=== PATIENT | male | born 2000 | race Caucasian/White ===

== ENCOUNTER 2022-09-16 10:29 | Emergency (ER) | payer BC, SELFPAY ==
[2022-09-16 10:40] VITALS: BP 131/81; PULSE 100; RESP 16; TEMP 36.1; O2SAT 99; BMI 21.9
--- NOTE | 2022-09-16 11:12 | CRLHL7_ITS ---
For Patients: As a result of the Cures Act, medical imaging exams and procedure reports are released immediately into your electronic medical record. You may view this report before your referring provider. If you have questions, please contact your health care provider. Indication: Trauma Technique: Right elbow 3 views Comparison: None Findings/impression: Acute complete fracture of the olecranon with extension into the joint space with anterior displacement of the distal fracture fragment measuring 6 millimeters. Associated soft tissue swelling. Bony mineralization is age appropriate. Dictated by Joo Whitt MD @ 09/16/2022 12:14:13 PM (Electronically Signed)
--- NOTE | 2022-09-16 11:14 | ED_ITS ---
HPI - Extremity Injury (Upper) General Chief Complaint: Extremity Pain/Injury, Upper Stated Complaint: Possible RT elbow broken Time Seen by Provider: 09/16/22 10:41 Source: patient and family History of Present Illness HPI narrative: A 2-year-old male was out running this morning, slipped on the ice falling onto right hip and right elbow noted immediate pain in right elbow. No prior history of elbow fracture or dislocation. Notes significant swelling. Pain radiates down the arm can move the hand and wrist without difficulty. Did not hit his head. Does not take anticoagulants. Has had a few sips of water this morning only. Last meal was 7:00 p.m. last night. Has had general anesthesia with wisdom tooth extraction in the past, no complications. No family history of anesthesia complications. No intoxication or alcohol involvement today. Did tr y taking 2 Tylenol with inadequate pain relief. Past medical history benign, no major long-term health problems, no prescription medications. Surgical history notable for wisdom tooth extraction. Family history negative for anesthesia complications. ROS notable for no other musculoskeletal injuries, no other complaints times 12 systems. MD complaint: injury to: right Related Data Home Medications Medication Instructions Recorded Confirmed No Known Home Medications 09/16/22 09/16/22 Allergies Allergy/AdvReac Type Severity Reaction Status Date / Time No Known Drug Allergies Allergy Verified 09/16/22 10:42 [facility] Social History Smoking Status: Never smoker Do you use any of these nicotine containing products: E-Cigarettes Second hand tobacco smoke exposure: No How often do you have a drink containing alcohol: never How often do you have six or more drinks on one occasion: Never AUDIT-C Alcohol total score: 0 Non-prescribed substance use: denies use service: No Exam Const: Vital Signs, click to edit/add: Vital Signs - 24 hr 09/16/22 10:40 Temperature 97.0 F L Pulse Rate [Left P ulse Oximeter] 100 Respiratory Rate 16 Blood Pressure [Le ft Upper Arm] 131/81 Pulse Oximetry 99 Documenting provider has reviewed patient's vital signs: yes Common normals: no apparent distress General appearance: cooperative and well kempt Other: Mildly anxious with significant guarding of right elbow. Good Historian with no intoxication HENMT: Common normals: normocephalic and head/scalp atraumatic Head and scalp: normocephalic and atraumatic Face and sinus: normal facial exam Eye: Common normals: conjunctivae normal General eye: normal appearance of both eyes Conjunctiva: conjunctiva(e) normal Neck & C-Spine: Common normals: full ROM and no lymphadenopathy Cervical spine: cervical ROM normal Resp: Common normals: normal respiratory effort and clear to auscultation bilaterally Effort & inspection: able to speak in complete sentences Auscultation: clear to auscultation bilaterally Cardio: Common normals: S1 normal heart sound, S2 normal heart sound and no murmurs Heart sounds: S1 normal and S2 normal Extremity: Other: Fingers on the affected side are cooler than the opposite hand but he can move them freely. Capillary refill is right around 2 seconds in the right hand where it is brisk in the opposite left. The wrist has normal flexion and extension the fingers do move normally. There is marked swelling and suspect deformity at the right olecranon, palpation shows significant bogginess. Palpation of the distal humerus also with significant tenderness. I do not perform a full exam due to suspicion for significant injury. I can feel good radial pulse. Opposite left side is unaffected. Palpation of the pelvis reveals no pain. Ambulates without difficulty. Psych: Common normals: thought process normal Appearance: well kempt Thought process: normal thought process Insight: insight good Judgement: judgment good Skin: Common normals: no rashes or lesions noted General skin exam: no rashes or lesions noted Course Vital Signs Vital signs: Initial Vital Signs Temperature 97.0 F L 09/16/22 10:40 Temperature Source Temporal Artery Scan 09/16/22 10:40 Pulse Rate 100 09/16/22 10:40 Respiratory Rate 16 09/16/22 10:40 Blood Pressure 131/81 09/16/22 10:40 Blood Pressure Mean 97 09/16/22 10:40 Blood Pressure Position Sitting 09/16/22 10:40 Pulse Oximetry 99 09/16/22 10:40 Vital Signs Temperature 97.0 F L 09/16/22 10:40 Pulse Rate 100 09/16/22 10:40 Respiratory Rate 16 09/16/22 10:40 Blood Pressure 131/81 09/16/22 10:40 Pulse Oximetry 99 09/16/22 10:40 Temperature 97.0 F L 09/16/22 10:40 Pulse Rate 100 09/16/22 10:40 Respiratory Rate 16 09/16/22 10:40 Blood Pressure 131/81 09/16/22 10:40 Pulse Oximetry 99 09/16/22 10:40 MDM - Extremity Injury (Upper) MDM Narrative Medical decision making narrative: Suspect serious fracture versus dislocation. Concern for neurovascular injury as well. A stat x-ray. Patient was agreeable to a trial of oral pain medication. Oxycodone p.o. x5, await x-ray findings. Will likely need ortho consult. Update: Per my interpretation clear obvious fracture of olecranon, confirmed with radiology report. I am questioning a tiny chip at the radial head as well as was the orthopedic team. We discussed findings over the phone. They are recommending a long-arm posterior splint, pain control and follow-up in clinic. Repeat examination shows warm fingers, normal movement of flexion extension abduction and adduction in the fingers. Normal range of motion at the wrist. Normal sensation. Multiple questions from patient and family answered. Long-a rm splint is applied with good anatomic positioning, 60? recommended. Discussed that he will likely need surgical pinning for optimal tricep performance down the road, he will be contacted from the surgical team regarding this with outpatient follow-up scheduled for Saturday which is 3 days from now. Discussed Tylenol, ibuprofen for pain control primarily, placed in a sling which was of limited benefit, discussed use of this only as needed. Limited prescription of oxycodone given if pain is severe. Risks and benefits discussed. Imaging Data elbow: Attestation: I have reviewed the pertinent imaging results. Radiologist's impression: Findings/impression: Acute complete fracture of the olecranon with extension into the joint space with anterior displacement of the distal fracture fragment measuring 6 millimeters. Associated soft tissue swelling. Bony mineralization is age appropriate. Discharge Plan Discharge Clinical Impression: Fracture of olecranon process of ulna Patient Disposition: Home w/ Parent or Adult Condition: Stable Instructions: Elbow Fracture (ED) Additional Instructions: Thankfully, the fracture of the elbow is fairly mild but it does impact with the tricep muscle inserts onto the elbow. This should be surgically corrected with pins to prevent complications with triceps function down the road. We have you scheduled with Dr. Hallman, 1 of our orthopedic assistant on Saturday. As we discussed, you are welcome to seek input from outside orthopedic care as well. Dr. Farr will discuss surgery, I am hoping this is next week. Pain control will be a bit of an issue. I recommend that you take Tylenol 1000 mg every 6 hours for pain and then ibuprofen 600 mg every 6 hours as well. I have given you a limited supply of oxycodone, you may take 1-2 tablets every 6 hours as needed for severe pain. Please try to wean off of this as soon as you are able. We have given you a sling to use for comfort, if you do not find this helpful, you do not need to use it. I get the current splint wet, new instructions will be given after surgery regarding a more long-term cast. Activity Level: Activity as Tolerated Discharge Diet: Regular Prescriptions: No Action No Known Home Medications Follow Up/Referrals: Provider,Not a Local [Primary Care Provider] - Stand Alone Forms: [employer] Info Instructions
[2022-09-16] MEDS: OXYCODONE 5 MG TABLET PO (11:21)
== END 2022-09-16 12:58 | disposition home or self-care (01) ==
PROVIDERS: Emergency Provider Family Medicine
DX: S52.024A Nondisplaced fracture of olecranon process without intraarticular extension of right ulna, initial encounter for closed fracture (principal); W00.9XXA Unspecified fall due to ice and snow, initial encounter
CPT/HCPCS: 29105; 73080; 99283; A9270

== ENCOUNTER 2022-09-21 09:28 | Day surgery (SDC) | payer BC, SELFPAY ==
[2022-09-21] VITALS (14 sets, daily range): BP systolic 108–140; BP diastolic 66–87; PULSE 73–120; RESP 11–29; TEMP 36.3–36.7; O2SAT 95–100; BMI 21.9
[2022-09-21] MEDS: SODIUM CHLORIDE 0.9 % (FLUSH) 10 ML SYRINGE IVF (10:10)
[2022-09-21] MEDS: LACTATED RINGERS 1000 ML 1,000 ML 100 ML IV (10:10)
--- NOTE | 2022-09-21 11:30 | CRLHL7_ITS ---
For Patients: As a result of the Cures Act, medical imaging exams and procedure reports are released immediately into your electronic medical record. You may view this report before your referring provider. If you have questions, please contact your health care provider. INDICATION: Fracture of the right olecranon. TECHNIQUE: Fluoroscopically guided intraoperative evaluation of the right elbow. FINDINGS: Four portable spot intraoperative images of the right elbow. Metallic plate and screw fixation device bridges the proximal olecranon fracture. More normal anatomic aligned has been achieved since the initial images from September 16, 2022. Fluoroscopic guidance utilized. 7.3 seconds fluoroscopy time utilized. IMPRESSION: 7.3 seconds fluoroscopy time utilized for open reduction and internal fixation of a right olecranon fracture. Adequate alignment. No hardware failure. Dictated by Maik Chery MD @ 09/23/2022 10:35:52 PM (Electronically Signed)
--- NOTE | 2022-09-21 11:46 | SUR.PREOP ---
covid test negative
--- NOTE | 2022-09-21 12:03 | SUR.PREOP ---
TIME?OUT:?1205 PT/RN/MDA?VERIFICATION?OF?SURGICAL?SITE,?PROCEDURE,?AND?CONSENT OBTAINED?PRIOR?TO?INVASIVE?PROCEDURE.
[2022-09-21] MEDS: fentaNYL 100 MCG/2 ML inj IVP (12:06)
[2022-09-21] MEDS: MIDAZOLAM HCL 1 MG/ML inj IVP (12:06)
[2022-09-21] MEDS: CEFAZOLIN 2 GM INJ IVP (12:30)
--- NOTE | 2022-09-21 12:59 | W.ANESCHARGE ---
Anesthesia Charges Start Date/Time Anesthesia Start Date: 09/21/22 Anesthesia Start Time: 12:16 Stop Date/Time Anesthesia Stop Date: 09/21/22 Anesthesia Stop Time: 14:29 Summary Emergency: No
--- NOTE | 2022-09-21 13:32 | W.ANESCHARGE ---
Anesthesia Charges Start Date/Time Anesthesia Start Date: 09/21/22 Anesthesia Start Time: 12:16 Stop Date/Time Anesthesia Stop Date: 09/21/22 Anesthesia Stop Time: 14:29 Summary Emergency: No
--- NOTE | 2022-09-21 13:53 | PM.ORPRC ---
Procedure Note Date of procedure: 09/21/22 Procedure: SURGEON: Vlad Hallman MD ROCKET ENGINE MECHANIC: Aamir REYNOLDS PREOPERATIVE DIAGNOSIS: Right upper extremity displaced 2 part olecranon fracture POSTOPERATIVE DIAGNOSIS: Right upper extremity displaced 2 part olecranon fracture NAME OF OPERATION: ORIF ANESTHESIA: General plus block ESTIMATED BLOOD LOSS: 0 mL COMPLICATIONS: None SPECIMENS: None DRAINS: None PREOPERATIVE ANTIBIOTICS: Ancef 1 g INDICATIONS: The patient is a 22-year-old who sustained a right upper extremity olecranon fracture. ORIF was recommended. The risks, benefits and expected outcomes were discussed in detail. These included but were not limited to: Infection, bleeding, injury to blood vessel or nerve, venous thromboembolism. All questions were answered to their satisfaction. PROCEDURE: The patient was placed supine on the operating room table. General anesthesia was administered. The patient is placed in the left lateral decubitus position, right arm up, secured to the table with the beanbag. All bony prominences were well padded. The right upper extremity was prepped and draped in the usual sterile fashion. The limb was exsanguinated with the Thong bandage. The pneumatic tourniquet was inflated to 250 mmHg. A longitudinal incision was made over the olecranon, it was curved radially over the point of the olecranon. Subcutaneous dissection taken sharply to the fracture which was subperiosteal exposed. Fracture hematoma was evacuated with the curette and suction. A unicortical drill hole was placed in the distal fragment and an anatomic reduction was obtained with the reduction clamp. We split the triceps insertion longitudinally to allow the plate to sit more flush on the proximal fragment. Despite this, the plate was off of the proximal fragment. Therefore, we took some of bend out of the plate. This improved it is placement. The [employer] olecranon plate was placed over the dorsal cortex. It was provisionally fixed to the shaft fragment with an olive wire and a cortical screw. We then held the plate secured to the proximal fragment and placed 3 locking screws in the proximal fragment. We completed the construct by placing 2 locking screws in the shaft fragment. We were unable to place the home run screws in the proximal fragment. Drill guide would not sit securely in the screw holes, since the plate had been bent. This construct was evaluated with the image intensifier in the AP, oblique and lateral views. Implants appear to be well placed and the reduction of the fracture appears anatomic. The wound was irrigated with normal saline. The triceps split was repaired with an 0 Vicryl suture. Skin was closed with a 2-0 Vicryl deep and a 3-0 Monocryl in a subcuticular fashion. Glue was used to seal the skin. A dry dressing was applied, and a long-arm splint were applied. The tourniquet was released. Sponge and needle counts were correct x 2. The patient tolerated the procedure well. There were no apparent complications. They were carefully transferred to the hospital bed and taken to the postanesthesia care unit in satisfactory condition. PLAN: The patient will be discharged to home. They will work on ice and elevation. They will follow up in the office next week for a wound check and three views of the elbow out of the splint prior to being seen in preparation for early active range of motion with OT and a long-arm posterior splint.
--- NOTE | 2022-09-21 14:31 | P.NB_ITS ---
Nerve Block Nerve Block Time Seen by Provider: 12:06 Date Seen: 09/21/22 Type of block requested by surgeon for post-operative analgesia: axillary Side: right Time out performed: Yes Verification of patient name: Yes Verification of date of : Yes Site marking: site marked Name of person performing procedure: Leeroy Continuous monitoring Was continuous monitoring of O2 sat, B/P, library monitor, recorded every 15 minutes?: Yes Procedure Checklist: sterile prep, needles and gloves Ultrasound guided. Images saved: Yes Medications given in 5ml increments after negative aspiration: Ropivicaine %: 0.5 mL: 30 Needle gauge: 22 Patient tolerated procedure well: Yes Additional comments: Needle noted adjacent to nerve Block Charges Block Charge (with Pro Fee): Brachial Plexus Use of Ultrasound Machine for Block: Yes- US Guidance/pain block
== END 2022-09-21 16:20 | disposition home or self-care (01) ==
PROVIDERS: Visit Provider Orthopaedic Surgery
PROC: (CPT 24685; principal; 2022-09-21 11:30)
DX: S52.021A Displaced fracture of olecranon process without intraarticular extension of right ulna, initial encounter for closed fracture (principal)
CPT/HCPCS: 24685; 01740; 01810; 64415; 73070; 76000; 76942; A4580; C1713; J0330; J0690; J1100; J2250; J2405; J2704; J2795; J3010; J7120

== ENCOUNTER 2022-12-14 10:45 | Outpatient (RCR) | payer BC, SELFPAY | END 2023-01-03 15:30 | disposition home or self-care (01) | PROVIDERS: Visit Provider Orthopaedic Surgery Sports Medicine | DX: S52.023A Displaced fracture of olecranon process without intraarticular extension of unspecified ulna, initial encounter for closed fracture (principal); Z98.890 Other specified postprocedural states; Z87.81 Personal history of (healed) traumatic fracture; Z51.89 Encounter for other specified aftercare | CPT/HCPCS: 97110; 97140; 97165; X5282 ==